=== PATIENT | male | born 1980 | race African-American/Black ===

== ENCOUNTER 2025-11-05 20:35 | Emergency (ER) | payer BC ==
[2025-11-05] MEDS: Aloe Vera/Sodium Chloride Gel 14.1 GM Tube NAS PRN (22:03)
== END 2025-11-05 22:30 | disposition home or self-care (01) ==
LOC: LL.ED 20:35
DX: T33.011A Superficial frostbite of right ear, initial encounter (principal); T33.012A Superficial frostbite of left ear, initial encounter; X31.XXXA Exposure to excessive natural cold, initial encounter; Y93.89 Activity, other specified
CPT/HCPCS: 99283; A9270